=== PATIENT | female | born 1990 | race African-American/Black ===

== ENCOUNTER 2017-06-01 21:18 | Emergency (ER) | payer SELFPAY ==
[~2017-06-01] VITALS: Ht 157.5 cm; Wt 63.5 kg
[2017-06-01 22:11] LABS: Urine RBC None Seen /hpf (0 - 4)
[2017-06-01 22:30] LABS: Basophils # (auto) 0 uL; Basophils % (auto) 0.5 % (0.0-2.0); Eosinophils # (auto) 0.2 uL; Hematocrit 40.7 % (36.0-46.0); Lymphocytes # (auto) 3.4 uL; Lymphocytes % (auto) 37.8 % (10.0-50.0); Mean Corpuscular Hemoglobin 32.6 pg (28.0-32.0); Mean Corpuscular Hgb Conc. 34.4 g/dL (32.0-36.0); Mean Corpuscular Volume 94.8 fL (80.0-100.0); Mean Platelet Volume 7.1 fL (6.9-10.8); Monocytes # (auto) 0.6 uL; Monocytes % (auto) 7.1 % (0.0-12.0); Neutrophils # (auto) 4.7 uL; Neutrophils % (auto) 52.6 % (37.0-80.0); Platelet Count (auto) 352 10^3/uL (140-450); Red Cell Distribution Width 12.5 % (11.8-14.3)
[2017-06-01 22:30] LABS: Urine Bilirubin Negative (Negative); Urine Blood Negative /uL (Negative); Urine Color Yellow (Yellow); Urine Glucose Normal (Normal); Urine Ketone Negative (Negative); Urine Mucus FEW (None Seen); Urine Nitrite Negative (Negative); Urine Squamous Epithelial Cell FEW /hpf (<5); Urine Urobilinogen Normal (Negative)
[2017-06-01 22:47] LABS: Albumin 3.8 g/dL (3.4-5.0); Anion Gap 12 (5-15); Aspartate Aminotransferase 14 U/L (15-37); BUN/Creatinine Ratio 9.8; Blood Urea Nitrogen 8 mg/dL (7-18); Calcium 8.8 mg/dL (8.5-10.1); Carbon Dioxide 23 mmol/L (21-32); Chloride 107 mmol/L (98-107); GFR African American 108 mL/min; GFR Non-African American 89 mL/min; Glucose 85 mg/dL (74-106); INR 1.06 (0.9-1.15); Magnesium 2.1 mg/dL (1.6-2.6); Partial Thromboplastin Time 28.8 sec (22.64-33.71); Potassium 3.5 mmol/L (3.5-5.1); Prothrombin Time 11.6 sec (9.37-12.3); Sodium 142 mmol/L (136-145)
[2017-06-01 22:57] LABS: Alkaline Phosphatase 61 U/L (45-117); Bilirubin, Total 0.5 mg/dL (0.2-1.0)
[2017-06-01 23:05] LABS: Temperature: 23.9 C (20.0-25.0)
[2017-06-02 02:03] VITALS: BP 130/80
== END 2017-06-02 03:06 | disposition left against medical advice (07) ==
LOC: ER 21:18
DX: R06.02 Shortness of breath (principal); M79.662 Pain in left lower leg; R07.9 Chest pain, unspecified
CPT/HCPCS: 36415; 71010; 80053; 81001; 81025; 83735; 83880; 84484; 85025; 85379; 85610; 85730; 93005; 93971